=== PATIENT | male | born 1955 | race Caucasian/White ===

== ENCOUNTER 2020-12-14 17:27 | Emergency (ER) | payer BC, SELFPAY ==
[2020-12-14 17:29] VITALS: BP 126/72; PULSE 114; RESP 16; TEMP 36.6; O2SAT 98; BMI 26.7
[2020-12-14 18:17] LABS: Basophils % 0.4 % (0.1-2.0); Chloride 92 mmol/L (98-107); Eosinophils % 0.2 % (0.1-12.0); Hematocrit 37.2 % (42.0-52.0); Lymphocytes # 1.1 K/mm3 (0.7-4.5); Lymphocytes % 13.4 % (10-50); Mean Corpuscular HGB Conc 32.2 g/dL (31.8-35.4); Mean Corpuscular Hemoglobin 27.1 pg (27.0-31.2); Mean Corpuscular Volume 84.2 fl (80-94); Mean Platelet Volume 6.7 fl (7.4-10.4); Monocytes # 0.8 K/mm3 (0.1-1.0); Monocytes % 9.3 % (1.7-9.3); Neutrophils # 6.3 K/mm3 (1.8-7.8); Neutrophils % 76.7 % (37.0-80.0); Platelet Count 506 K/mm3 (142-424); Potassium 4.4 mmoL/L (3.5-5.1); Red Blood Count 4.42 M/mm3 (4.60-6.20); Red Cell Distribution Width 15.7 % (11.5-17.5); Sodium 127 mmol/L (136-145); White Blood Count 8.3 K/mm3 (4.8-10.8)
[2020-12-14 18:19] LABS: Blood Urea Nitrogen 10 mg/dl (9-20); Creatinine Clearance Estimated 93 mL/min (50-200); Estimated Glomerular Filt Rate 98 ml/min (>60); GFR (African American) 118 ML/MIN (>60)
[2020-12-14 18:20] LABS: Alanine Aminotransferase 48 U/L (12-78); Albumin Level 3.2 g/dl (3.5-5.0); Albumin/Globulin Ratio 0.8 (1.1-1.8); Alkaline Phosphatase 180 U/L (38-126); Anion Gap 11.4 mEq/L (5-15); Aspartate Amino Transferase 32 U/L (17-59); Bilirubin,Total 0.7 mg/dl (0.2-1.3); Calcium 8.4 mg/dl (8.4-10.2); Carbon Dioxide 28 mmol/L (22.0-30.0); Glucose 152 mg/dl (74-100); Total Protein,Serum 7.2 g/dl (6.3-8.2)
[2020-12-14 18:25] LABS: Lipase 15 U/L (23-300)
[2020-12-14 18:26] LABS: C-Reactive Protein 102.4 mg/L (0-4)
[2020-12-14 18:30] VITALS: BP 113/71; PULSE 106; O2SAT 98
--- NOTE | 2020-12-14 18:40 | HMH.EDABDPAI ---
ED Disposition Clinical Impression: Hyponatremia Ulcerative colitis Qualifiers: Ulcerative colitis location: other ulcerative colitis Digestive disease complication type: without complication Qualified Code(s): K51.80 - Other ulcerative colitis without complications Disposition: Home, Self-Care Condition on Discharge: Fair Instructions: DI for Ulcerative Colitis Referrals: Jazmine Cornelius MD [Primary Care Provider] - - Critical Care Critical Care Time: No Attestation: On 12/14/20, the high probability of a clinically significant, sudden or life threatening deterioration of the following system(s) required my full and direct attention, intervention and personal management. The time I documented below is in addition to time spent performing reported procedures but includes the following listed in this critical care notation. Medical Decision Making - Medical Records Medical records reviewed: Yes: I reviewed the patient's medical records. - Brooks Inquiry Pt receiving controlled substance: No Vital Signs: 12/14/20 17:29 Temperature 98 F Temperature Source Oral Pulse Rate [Radial] 114 H Respiratory Rate 16 Blood Pressure [Right Arm] 126/72 Blood Pressure Mean [Right Arm] 90 Blood Pressure Position [Right Arm] Sitting 02 Sat by Pulse Oximetry 98 Oxygen Delivery Method Room Air - Lab Data Lab Results 12/14/20 17:55: WBC 8.3, RBC 4.42 L, Hgb 12.0 L, Hct 37.2 L, MCV 84.2, MCH 27.1, MCHC 32.2, RDW 15.7, Plt Count 506 H, MPV 6.7 L, Neut % (Auto) 76.7, Lymph % (Auto) 13.4, [place] % (Auto) 9.3, Eos % (Auto) 0.2, Baso % (Auto) 0.4, Neut # (Auto) 6.3, Lymph # (Auto) 1.1, [place] # (Auto) 0.8, Eos # (Auto) 0.0, Baso # (Auto) 0.0 12/14/20 17:55: Sodium 127 L, Potassium 4.4, Chloride 92 L, Carbon Dioxide 28, Anion Gap 11.4, BUN 10, Creatinine 0.80, Estimated Creat Clear 93, Estimated GFR 98, Est GFR ( Amer) 118, Glucose 152 H, Calcium 8.4, Total Bilirubin 0.7, AST 32, ALT 48, Alkaline Phosphatase 180 H, C-Reactive Protein 102.4 H, Total Protein 7.2, Albumin 3.2 L, Globulin 4.0 H, Albumin/Globulin Ratio 0.8 L 12/14/20 17:55: Lipase 15 L Result diagrams: 12/14/20 17:55 12/14/20 17:55 Orders (Tests/Meds): ED MEDICATIONS Generic Name Dose Route Start Last Admin Trade Name Freq PRN Reason Stop Dose Admin Sodium Chloride 1,000 mls @ 999 mls/hr 12/14/20 17:45 12/14/20 17:59 Sod Chlor 0.9% 1000ml Bag IV 12/14/20 18:45 999 mls/hr .Q1H1M NADJA Administration Discontinued Medications Generic Name Dose Route Start Last Admin Trade Name Freq PRN Reason Stop Dose Admin Morphine Sulfate 4 mg 12/14/20 17:54 12/14/20 17:59 Morphine 4mg/Ml Syringe IV 12/14/20 17:55 4 mg ONCE ONE Administration Ondansetron HCl 4 mg 12/14/20 17:54 12/14/20 17:59 Ondansetron 4mg/2ml Vial IV 12/14/20 17:55 4 mg ONCE ONE Administration ORDERS Category Date Time Status Erythrocyte Sedimentation Rate Stat Lab 12/14/20 17:55 Received - Reevaluation(s) Time: 18:58 Reevaluation #1: On reevaluation, patient is feeling better. Does have some mild hyponatremia. I was instructed him to increase his salt intake. Patient feels better after fluids. Repeat abdominal examination is benign. Tolerating oral intake. Patient is already on steroid and antidiarrheal agent. 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 Given strict return precautions. Verbalized understanding. Medical Decision Narrative: 65-year-old male presented to the emergency department with some persistent diarrhea. Patient is a longstanding history of ulcerative colitis. Abdominal exam is benign. Work-up initiated. Abdominal Pain HPI - General Chief Complaint: Abdominal Pain Stated Complaint: diarrhea,weakness Time Seen by Provider: 12/14/20 17:30 Mode of Arrival: Ambulatory Limitations: No Limitations Description of Symptoms (Recalled from ER Triage Doc. by RN): to ed per pvt car with c/o UC flare. pt states he is
[2020-12-14 19:00] VITALS: BP 115/77; PULSE 108; O2SAT 98
[2020-12-14 19:10] LABS: Erythrocyte Sedimentation Rate 115 mm/hr (0-20)
[2020-12-14 19:15] VITALS: BP 123/68; PULSE 105; RESP 18; TEMP 36.6; O2SAT 98
== END 2020-12-14 19:16 | disposition home or self-care (01) ==
PROVIDERS: Emergency Provider Emergency Medicine; PCP Family Medicine
DX: K51.80 Other ulcerative colitis without complications (principal); E87.1 Hypo-osmolality and hyponatremia; E11.9 Type 2 diabetes mellitus without complications; E78.5 Hyperlipidemia, unspecified
CPT/HCPCS: 80053; 83690; 85025; 85651; 86140; 96365; 96375; 99283; J2405

== ENCOUNTER 2020-12-28 17:28 | Emergency (ER) | payer BC, SELFPAY ==
[2020-12-28 17:31] VITALS: BP 168/140; PULSE 115; RESP 20; TEMP 36.6; O2SAT 98; BMI 24.5
--- NOTE | 2020-12-28 18:01 | HMH.EDGENADL ---
ED Disposition Condition on Discharge: Fair - Critical Care Critical Care Time: No <Mendoza Villarreal - Last Filed: 12/28/20 19:33> <Abel Pathak - Last Filed: 12/28/20 21:14> Clinical Impression: Addisonian crisis Hypothyroidism Qualifiers: Hypothyroidism type: acquired Qualified Code(s): E03.9 - Hypothyroidism, unspecified Disposition: Home, Self-Care Instructions: DI for Muscle Weakness Additional Instructions: fluids and see pcp for follow up Prescriptions: methylPREDNISolone [Medrol 4mg tab] 4 mg PO DIRECTED #21 tab Transmission Status: Pending to [id number] Referrals: Jazmine Cornelius MD [Primary Care Provider] - Attestation: On 12/28/20, the high probability of a clinically significant, sudden or life threatening deterioration of the following system(s) required my full and direct attention, intervention and personal management. The time I documented below is in addition to time spent performing reported procedures but includes the following listed in this critical care notation. Medical Decision Making - Medical Records Medical records reviewed: Yes: I reviewed the patient's medical records. - Brooks Inquiry Pt receiving controlled substance: No - Lab Data Lab results reviewed: Yes: I reviewed the patient's lab results. Result diagrams: 12/28/20 18:00 12/28/20 18:00 - Radiology Data #1 Image(s): Chest Image Reviewed: Yes I reviewed the patient's radiology results, Yes I reviewed the patient's radiology image, Yes I have reviewed radiologist's interpretation Preliminary Findings: Normal/NAD <Mendoza Villarreal - Last Filed: 12/28/20 19:33> - Lab Data Result diagrams: 12/28/20 18:00 12/28/20 18:00 - Reevaluation(s) Time: 21:11 <Abel Pathak - Last Filed: 12/28/20 21:14> Vital Signs: 12/28/20 17:31 12/28/20 19:30 Temperature 97.8 F Temperature Source Oral Pulse Rate 104 H Pulse Rate [Left Radial] 115 H Respiratory Rate 20 Blood Pressure 121/81 Blood Pressure [Right Arm] 168/140 H Blood Pressure Mean [Right Arm] 149 Blood Pressure Source [Right Arm] Automatic Cuff Blood Pressure Position [Right Arm] Sitting 02 Sat by Pulse Oximetry 98 99 Oxygen Delivery Method Room Air - Lab Data Lab Results 12/28/20 18:00: WBC 10.5, RBC 4.31 L, Hgb 12.6 L, Hct 36.7 L, MCV 85.1, MCH 29.2, MCHC 34.3, RDW 17.6 H, Plt Count 365, MPV 7.9, Neut % (Auto) 83.1 H, Lymph % (Auto) 12.4, [place] % (Auto) 4.2, Eos % (Auto) 0.0 L, Baso % (Auto) 0.3, Neut # (Auto) 8.8 H, Lymph # (Auto) 1.3, [place] # (Auto) 0.4, Eos # (Auto) 0.0, Baso # (Auto) 0.0 12/28/20 18:00: Sodium 120 L, Potassium 5.2 H, Chloride 87 L, Carbon Dioxide 25, Anion Gap 13.2, BUN 24 H, Creatinine 0.90, Estimated Creat Clear 85, Estimated GFR 85, Est GFR ( Amer) 103, Glucose 137 H, Calcium 8.5, Total Bilirubin 1.1, AST 106 H, ALT 127 H, Alkaline Phosphatase 614 H, NT-Pro-B Natriuret Pep 450 H, Total Protein 7.1, Albumin 3.1 L, Globulin 4.0 H, Albumin/Globulin Ratio 0.8 L 12/28/20 18:00: TSH 9.63 H, Free T4 Index 1.8 L, Thyroxine (T4) 3.6 L, T3 Uptake 50 H 12/28/20 19:34: Urine Color Yellow, Urine Appearance Clear, Urine pH 5.5, Ur Specific [place] 1.025, Urine Protein Trace, Urine Glucose (UA) Trace, Urine Ketones Trace, Urine Blood Negative, Urine Nitrate Positive, Urine Bilirubin 2+ A, Urine Urobilinogen 1.0, Ur Leukocyte Esterase Negative, Urine RBC None, Urine WBC None, Ur Squamous Epith Cells None, Urine Bacteria Trace Orders (Tests/Meds): ED MEDICATIONS Generic Name Dose Route Start Last Admin Trade Name Freq PRN Reason Stop Dose Admin Sodium Chloride 1,000 mls @ 999 mls/hr 12/28/20 19:00 12/28/20 19:04 Sod Chlor 0.9% 1000ml Bag IV 12/28/20 20:00 999 mls/hr .Q1H1M NADJA Administration Discontinued Medications Generic Name Dose Route Start Last Admin Trade Name Freq PRN Reason Stop Dose Admin Hydrocortisone Sodium Succinate 100 mg 12/28/20 18:57 12/28/20 19:04 Hy
--- NOTE | 2020-12-28 18:07 | XR_ITS ---
PROCEDURE INFORMATION: Exam: XR Chest Exam date and time: 12/28/2020 6:07 PM Age: 65 years old Clinical indication: Shortness of breath; Additional info: Dyspnea TECHNIQUE: Imaging protocol: XR of the chest. Views: 1 view. COMPARISON: No relevant prior studies available. FINDINGS: Lungs: Unremarkable. No consolidation. Pleural spaces: Unremarkable. No pleural effusion. No pneumothorax. Heart/Mediastinum: Unremarkable. No cardiomegaly. Bones/joints: Unremarkable. IMPRESSION: No acute findings.
[2020-12-28 18:35] LABS: Chloride 87 mmol/L (98-107); Sodium 120 mmol/L (136-145)
[2020-12-28 18:36] LABS: Potassium 5.2 mmoL/L (3.5-5.1)
[2020-12-28 18:38] LABS: Alanine Aminotransferase 127 U/L (12-78); Alkaline Phosphatase 614 U/L (38-126); Aspartate Amino Transferase 106 U/L (17-59); Bilirubin,Total 1.1 mg/dl (0.2-1.3); Blood Urea Nitrogen 24 mg/dl (9-20); Creatinine Clearance Estimated 85 mL/min (50-200); Estimated Glomerular Filt Rate 85 ml/min (>60); GFR (African American) 103 ML/MIN (>60)
--- NOTE | 2020-12-28 18:38 | ECG_ITS ---
APPROVED REPORT Exam: Resting ECG HR:105 bpm ECG Measurements Heart Rate 105 AXES MN 152 P 53 QRSd 86 QRS 44 QT 342 T 48 QTc 452 Conclusion Sinus tachycardia Otherwise normal ECG Electronically signed by : Tawanda Schwab MD 12/29/2020 21:04:34
[2020-12-28 18:39] LABS: Albumin Level 3.1 g/dl (3.5-5.0); Albumin/Globulin Ratio 0.8 (1.1-1.8); Anion Gap 13.2 mEq/L (5-15); Calcium 8.5 mg/dl (8.4-10.2); Carbon Dioxide 25 mmol/L (22.0-30.0); Glucose 137 mg/dl (74-100); Total Protein,Serum 7.1 g/dl (6.3-8.2)
[2020-12-28 18:48] LABS: NT Pro Brain Natriuretic Pep. 450 pg/mL (0-125)
[2020-12-28 19:00] LABS: Basophils % 0.3 % (0.1-2.0); Hematocrit 36.7 % (42.0-52.0); Hemoglobin 12.6 g/dL (14.1-18.0); Lymphocytes # 1.3 K/mm3 (0.7-4.5); Lymphocytes % 12.4 % (10-50); Mean Corpuscular HGB Conc 34.3 g/dL (31.8-35.4); Mean Corpuscular Hemoglobin 29.2 pg (27.0-31.2); Mean Corpuscular Volume 85.1 fl (80-94); Mean Platelet Volume 7.9 fl (7.4-10.4); Monocytes # 0.4 K/mm3 (0.1-1.0); Monocytes % 4.2 % (1.7-9.3); Neutrophils # 8.8 K/mm3 (1.8-7.8); Neutrophils % 83.1 % (37.0-80.0); Platelet Count 365 K/mm3 (142-424); Red Blood Count 4.31 M/mm3 (4.60-6.20); Red Cell Distribution Width 17.6 % (11.5-17.5); White Blood Count 10.5 K/mm3 (4.8-10.8)
[2020-12-28 19:13] LABS: Triiodothryronine (T3) Uptake 50 % (23.5-40.5)
[2020-12-28 19:14] LABS: Free Thyroxine Index 1.8 ug/dL (5.93-13.13); T4 (Thyroxine) 3.6 ug/dl (5.53-11.0)
[2020-12-28 19:28] LABS: Thyroid Stimulating Hormone 9.63 uIU/mL (0.465-4.68)
[2020-12-28 19:30] VITALS: BP 121/81; PULSE 104; O2SAT 99
[2020-12-28 19:36] LABS: Microscopic, Urine URINE MICROSCOPIC (MICROSCOPIC)
[2020-12-28 19:38] LABS: Appearance,Urine CLEAR (Clear); Blood, Urine Negative (Negative); Color,Urine YELLOW (Yellow); Glucose,Urine (UA) TRACE (Negative); Ketones,Urine TRACE (Negative); Leukocyte Esterase,Urine Negative (Negative); Nitrate,Urine POSITIVE (Negative); PH,Urine 5.5 (5.0-8.5); Protein,Urine TRACE (Negative); Specific Gravity, Urine 1.025 (1.005-1.030)
[2020-12-28 19:40] LABS: Bilirubin,Urine 2+ (Negative)
[2020-12-28 20:12] LABS: Bacteria,Urine Trace /lpf
[2020-12-28 21:22] VITALS: BP 102/64; PULSE 75; RESP 18; TEMP 36.8; O2SAT 98
== END 2020-12-28 21:29 | disposition home or self-care (01) ==
PROVIDERS: Emergency Medicine; Emergency Provider Emergency Medicine; PCP Family Medicine
DX: E03.9 Hypothyroidism, unspecified (principal); I95.9 Hypotension, unspecified; E87.1 Hypo-osmolality and hyponatremia; E87.5 Hyperkalemia; Z87.891 Personal history of nicotine dependence; E11.9 Type 2 diabetes mellitus without complications
CPT/HCPCS: 71045; 80053; 81001; 83880; 84436; 84443; 84479; 85025; 93005; 96365; 96375; 99283